=== PATIENT | female | born 1925 | race Caucasian/White ===

== ENCOUNTER 2016-12-11 22:54 | Inpatient (IN) | payer MEDICARE ==
[~2016-12-11] VITALS: Ht 154.9 cm; Wt 65.4 kg
[2016-12-11] MEDS ORDERED: ALPR0.5T10 SL (23:24)
[2016-12-11] MEDS ORDERED: VIT1TABL34 PO (23:24)
[2016-12-11] MEDS ORDERED: PROB500T22 PO (23:24)
[2016-12-11] MEDS ORDERED: AMLO10TA2 PO (23:24)
[2016-12-11] MEDS ORDERED: LISI-167 PO (23:24)
[2016-12-11] MEDS ORDERED: OMEP-110 PO ×2 (23:24→23:54)
[2016-12-11] MEDS ORDERED: HYDR-3138 PO (23:24)
[2016-12-11] MEDS ORDERED: DIGO125T PO ×2 (23:24→23:52)
[2016-12-11] MEDS ORDERED: SODIUM CHLORIDE FLUSH 10ML SYR IVF ONE (23:30)
[2016-12-11] MEDS ORDERED: CALC1TAB50 PO (23:54)
[2016-12-11] MEDS ORDERED: POTA20PA8 PO (23:54)
[2016-12-12 00:19] LABS: HEMATOCRIT 29.9 % (34.6-47.8); HEMOGLOBIN 9.7 g/dL (11.7-16.4); WHITE BLOOD COUNT 8.9 x10^3/uL (3.4-10)
[2016-12-12 00:32] LABS: ASPARTATE AMINO TRANSFERASE 10 U/L (15-37); BLOOD UREA NITROGEN 22 mg/dL (7-18)
[2016-12-12] MEDS ORDERED: SODIUM CHLORIDE 0.9%, 500ML IVBOLUS ONE (01:30)
[2016-12-12] MEDS ORDERED: SODIUM CHLORIDE 0.9% 1,000 ML IV SCH (01:34)
[2016-12-12] MEDS ORDERED: POLYETHYLENE GLYCOL 17 GM PACKET PO PRN (02:00)
[2016-12-12] MEDS ORDERED: MOVIPREP POWDER 1 PREP KIT PO ONE (02:00)
[2016-12-12] MEDS ORDERED: morphine SULFATE 10 MG/ML, 1ML IVPush PRN (02:00)
[2016-12-12] MEDS ORDERED: DOCUSATE 100 MG CAPSULE PO PRN (02:00)
[2016-12-12] MEDS ORDERED: TEMPLATE NON-FORMULARY MED. (Alprazolam** 0.5 MG) SL PRN (02:00)
[2016-12-12] MEDS ORDERED: ONDANSETRON 2MG/ML, 2ML IVPush PRN (02:00)
[2016-12-12] MEDS ORDERED: ACETAMINOPHEN 325 MG TABLET PO PRN (02:00)
[2016-12-12 05:07] VITALS: BP 137/79
[2016-12-12 07:13] LABS: HEMATOCRIT 30.6 % (34.6-47.8); HEMOGLOBIN 9.7 g/dL (11.7-16.4)
[2016-12-12] MEDS: DIGOXIN 0.125 MG TABLET PO SCH (09:00)
[2016-12-12 09:37] VITALS: BP 131/77
[2016-12-12] MEDS: AMLODIPINE 5 MG TABLET PO SCH (09:41)
[2016-12-12] MEDS: POTASSIUM CHLORIDE 20 MEQ PACKET PO SCH (09:41)
[2016-12-12] MEDS: HYDROcodone/APAP 5/325 TABLET PO SCH (09:41)
[2016-12-12] MEDS: PROBENECID 500 MG TABLET PO SCH ×2 (09:41→21:00)
[2016-12-12 10:23] LABS: TOTAL IRON BINDING CAPACITY 315 mcg/dL (250-450)
[2016-12-12 14:12] VITALS: BP 128/68
[2016-12-12 19:58] VITALS: BP 143/91
[2016-12-13] MEDS: HYDROcodone/APAP 5/325 TABLET PO SCH ×3 (00:14→21:45)
[2016-12-13 02:06] VITALS: BP 114/72
[2016-12-13 07:38] VITALS: BP 117/58
[2016-12-13 08:21] LABS: BLOOD UREA NITROGEN 14 mg/dL (7-18)
[2016-12-13 08:34] LABS: HEMATOCRIT 26.6 % (34.6-47.8); HEMOGLOBIN 8.7 g/dL (11.7-16.4); WHITE BLOOD COUNT 6.6 x10^3/uL (3.4-10)
[2016-12-13] MEDS: PROBENECID 500 MG TABLET PO SCH ×2 (09:00→21:45)
[2016-12-13] MEDS ORDERED: MIDAZOLAM 1 MG/ML, 2ML ONE (10:07)
[2016-12-13] MEDS ORDERED: PROPOFOL 10 MG/ML, 20ML ONE (10:24)
[2016-12-13] MEDS ORDERED: DEXAMETHASONE 4 MG/ML, 1ML ONE (10:24)
[2016-12-13] MEDS ORDERED: ONDANSETRON 2MG/ML, 2ML ONE (10:24)
[2016-12-13] MEDS ORDERED: HYDROcodone/APAP 7.5-325MG/15ML UDC PO PRN (11:00)
[2016-12-13] MEDS ORDERED: PROMETHAZINE 25 MG/ML, 1ML IV PRN (11:00)
[2016-12-13] MEDS ORDERED: FENTANYL PF 100 MCG/2ML IV PRN (11:00)
[2016-12-13] MEDS ORDERED: HYDROmorphone 1 MG/ML, 1ML IV PRN (11:00)
[2016-12-13] MEDS ORDERED: EPHEDRINE 50 MG/ML, 1ML IVPush PRN (11:00)
[2016-12-13] MEDS ORDERED: ALBUTEROL SULFATE 2.5 MG/3 ML NPPB PRN (11:00)
[2016-12-13] MEDS ORDERED: ONDANSETRON 2MG/ML, 2ML IVPush PRN (11:00)
[2016-12-13] MEDS ORDERED: hydrALAzine 20 MG/ML, 1ML IV PRN (11:00)
[2016-12-13] MEDS ORDERED: OXYcodone 5 MG/5 ML ORAL.SOL UDC PO PRN (11:00)
[2016-12-13] MEDS ORDERED: LABETALOL 5MG/ML, 20ML IV PRN (11:00)
[2016-12-13] MEDS ORDERED: METOPROLOL 1 MG/ML, 5ML IV PRN (11:00)
[2016-12-13] MEDS ORDERED: ACETAMINOPHEN 325 MG TABLET PO PRN ×2 (11:00→14:30)
[2016-12-13] MEDS: DIGOXIN 0.125 MG TABLET PO SCH (13:03)
[2016-12-13] MEDS: POTASSIUM CHLORIDE 20 MEQ PACKET PO SCH (13:03)
[2016-12-13] MEDS: AMLODIPINE 5 MG TABLET PO SCH (13:03)
[2016-12-13] MEDS ORDERED: POLYETHYLENE GLYCOL 17 GM PACKET PO PRN (14:30)
[2016-12-13] MEDS ORDERED: DOCUSATE 100 MG CAPSULE PO PRN (14:30)
[2016-12-13] MEDS ORDERED: morphine SULFATE 10 MG/ML, 1ML IVPush PRN (14:30)
[2016-12-13 19:12] VITALS: BP 126/69
[2016-12-14 04:30] VITALS: BP 130/60
[2016-12-14 07:51] VITALS: BP 144/83
[2016-12-14] MEDS: AMLODIPINE 5 MG TABLET PO SCH (08:40)
[2016-12-14] MEDS: PROBENECID 500 MG TABLET PO SCH (08:40)
[2016-12-14] MEDS: DIGOXIN 0.125 MG TABLET PO SCH (08:40)
[2016-12-14] MEDS: HYDROcodone/APAP 5/325 TABLET PO SCH (08:40)
[2016-12-14] MEDS: POTASSIUM CHLORIDE 20 MEQ PACKET PO SCH (08:41)
[2016-12-14 10:50] LABS: HEMATOCRIT 25.8 % (34.6-47.8); HEMOGLOBIN 8.3 g/dL (11.7-16.4); WHITE BLOOD COUNT 9.8 x10^3/uL (3.4-10)
[2016-12-14 15:05] VITALS: BP 132/80
== END 2016-12-14 15:15 | disposition home or self-care (01) | DRG 377 ==
LOC: SUATTDRO 12-12 01:22 → ED 12-12 01:28 → EDIP 12-12 01:34 → 4NOR 12-12 02:40
PROVIDERS: ADMIT Family Medicine; ATTEND Family Medicine
PROC: 0DJD8ZZ Inspection of Lower Intestinal Tract, Via Natural or Artificial Opening Endoscopic (ICD-10-PCS; principal; 2016-12-13 09:00)
DX: K57.31 Diverticulosis of large intestine without perforation or abscess with bleeding (principal); N17.0 Acute kidney failure with tubular necrosis; E44.0 Moderate protein-calorie malnutrition; D68.69 Other thrombophilia; G62.9 Polyneuropathy, unspecified; E86.0 Dehydration; I48.91 Unspecified atrial fibrillation; I12.9 Hypertensive chronic kidney disease with stage 1 through stage 4 chronic kidney disease, or unspecified chronic kidney disease; D50.0 Iron deficiency anemia secondary to blood loss (chronic); E66.9 Obesity, unspecified; K21.9 Gastro-esophageal reflux disease without esophagitis; N18.9 Chronic kidney disease, unspecified; Z98.84 Bariatric surgery status; Z68.27 Body mass index [BMI] 27.0-27.9, adult
CPT/HCPCS: 36415; 80048; 80053; 80162; 83540; 83550; 85014; 85018; 85025; 85610; 85730; 86850; 86900; 96360; J1100; J2250; J2405; J2704; J7030; J7040